=== PATIENT | female | born 1985 | race Caucasian/White ===

== ENCOUNTER 2017-01-16 09:16 | Emergency (ER) | payer OTHER ==
[~2017-01-16] VITALS: Ht 160 cm; Wt 61.9 kg
[~2017-01-16 09:16] MED LIST: APAP/HYDROCODON1 T13 PO; APAP500 MG PO; COLACE100 MG PO; FER300 PO; FOL1 PO; LAC PO; LEVAQUIN750 MG PO; LEVOTHYROXIN0.075 M2 PO; MULTI VITAMINS1 TA1 PO; NOR10T PO; PRE10 PO; ZYP5 PO
[2017-01-16 11:26] LABS: BASOPHIL % 0.3 % (0-2); RED CELL DISTRIBUTION WIDTH 13.9 % (11.5-14.5)
[2017-01-16 11:29] LABS: PLATELET COUNT 64 x10^3mcL (130-400)
[2017-01-16 11:37] LABS: CALCIUM 7.8 mg/dL (8.5-10.1); CARBON DIOXIDE 28.1 mmol/L (21-32); CREATININE SERUM 1.3 mg/dL (0.6-1.0); POTASSIUM SERUM 4.1 mmol/L (3.5-5.1)
[2017-01-16 11:41] LABS: microscopic required? YES; urine erythrocyte 3+ (NEGATIVE)
[2017-01-16 11:42] LABS: ALBUMIN 2.6 g/dL (3.4-5.0); BILIRUBIN TOTAL 0.3 mg/dL (0.20-1.00); TOTAL PROTEIN, SERUM 6.1 g/dL (6.4-8.2)
[2017-01-16 12:49] VITALS: BP 98/63
== END 2017-01-16 12:49 | disposition home or self-care (01) ==
LOC: ED 09:16
PROVIDERS: Emergency Medicine
DX: N39.0 Urinary tract infection, site not specified (principal); D64.9 Anemia, unspecified; E46 Unspecified protein-calorie malnutrition; E03.9 Hypothyroidism, unspecified; C85.90 Non-Hodgkin lymphoma, unspecified, unspecified site; N18.3 Chronic kidney disease, stage 3 (moderate); Z88.2 Allergy status to sulfonamides; Z88.1 Allergy status to other antibiotic agents
CPT/HCPCS: J0696; J7030

== ENCOUNTER 2017-01-20 21:38 | Inpatient (IN) | payer OTHER ==
[~2017-01-20] VITALS: Ht 162.6 cm; Wt 63.0 kg
[2017-01-20 22:37] LABS: UA SPECIFIC GRAVITY 1.015 (1.005-1.035); microscopic required? YES; urine erythrocyte 1+ (NEGATIVE)
[2017-01-20 22:40] LABS: CALCIUM 8.2 mg/dL (8.5-10.1); CARBON DIOXIDE 26.3 mmol/L (21-32); CREATININE SERUM 1.6 mg/dL (0.6-1.0); POTASSIUM SERUM 4.2 mmol/L (3.5-5.1)
[2017-01-20 22:43] LABS: BASOPHIL % 0.2 % (0-2); RED CELL DISTRIBUTION WIDTH 13.8 % (11.5-14.5)
[2017-01-20 22:44] LABS: PLATELET COUNT 105 x10^3mcL (130-400)
[2017-01-20 22:46] LABS: BILIRUBIN TOTAL 0.23 mg/dL (0.20-1.00); TOTAL PROTEIN, SERUM 6.2 g/dL (6.4-8.2)
[2017-01-20 22:47] LABS: ALBUMIN 2.7 g/dL (3.4-5.0)
[2017-01-20] MEDS ORDERED: SYNTHROID0.075 MG PO (23:13)
[2017-01-20] MEDS ORDERED: NORCO1 TA2 PO (23:14)
[2017-01-20] MEDS ORDERED: PYRIDIUM100 MG PO (23:14)
[2017-01-20] MEDS ORDERED: LEVAQUIN500 M1 PO (23:15)
[2017-01-21 00:19] LABS: AMPHETAMINE QUAL UR NONE DETECTED (NEG <=1000)
[2017-01-21 00:20] LABS: AMYLASE 66 U/L (25-115); CHOLESTEROL 188 mg/dL (<200); LIPASE 159 IU/L (73-393); MAGNESIUM 1.7 mg/dL (1.8-2.4); PHOSPHOROUS 4.5 mg/dL (2.5-4.9)
[2017-01-21 00:24] VITALS: BP 111/66; BP 125/79
[2017-01-21 00:26] LABS: CHOLESTEROL/HDL RATIO 5.5; HDL CHOLESTEROL 34 mg/dL (40-60); TRIGLYCERIDES 540 mg/dL (<150)
[2017-01-21 00:34] LABS: T3 TOTAL 1.18 ng/mL
[2017-01-21 00:37] LABS: FREE T4 1.23 ng/dL (0.76-1.46); FREE THYROXINE INDEX 2.8 ug/dL (1.4-4.5); T4(THYROXINE) 9.7 ug/dL (4.7-13.3)
[2017-01-21 05:09] VITALS: BP 123/81
[2017-01-21 06:13] LABS: CALCIUM 7.5 mg/dL (8.5-10.1); CARBON DIOXIDE 25.2 mmol/L (21-32); CREATININE SERUM 1.3 mg/dL (0.6-1.0); MAGNESIUM 1.7 mg/dL (1.8-2.4); PHOSPHOROUS 3.4 mg/dL (2.5-4.9); POTASSIUM SERUM 4.1 mmol/L (3.5-5.1)
[2017-01-21 06:20] LABS: RED CELL DISTRIBUTION WIDTH 13.7 % (11.5-14.5)
[2017-01-21 07:26] LABS: PLATELET COUNT 74 x10^3mcL (130-400)
[2017-01-21 09:37] LABS: MONOCYTE 4 % (0-7); SEGMENTED NEUTROPHILS 66 % (37-75); rbc morphology (normal/abnorm) NORMAL (NORMAL)
[2017-01-21 09:38] LABS: PLATELET MORPHOLOGY PLATELETS DECREASED
[2017-01-21 10:09] VITALS: BP 129/86
[2017-01-21 10:51] LABS: IRON 37 ug/dL (50-170)
[2017-01-21 10:54] LABS: TOTAL IRON BINDING CAPACITY 196 ug/dL (250-450)
[2017-01-21 11:31] LABS: RED BLOOD CELLS 2.74 M/mm3 (4.10-5.10)
[2017-01-21 12:54] VITALS: BP 123/76
[2017-01-21 16:14] LABS: BASOPHIL % 0.3 % (0-2); RED CELL DISTRIBUTION WIDTH 13.9 % (11.5-14.5)
[2017-01-21 16:18] LABS: PLATELET COUNT 72 x10^3mcL (130-400)
[2017-01-21 16:44] VITALS: BP 125/82
[2017-01-21 22:10] VITALS: BP 124/87
[2017-01-22 06:12] VITALS: BP 135/87
[2017-01-22 08:36] LABS: RED CELL DISTRIBUTION WIDTH 13.9 % (11.5-14.5)
[2017-01-22 09:35] LABS: CALCIUM 7.7 mg/dL (8.5-10.1); CARBON DIOXIDE 28.4 mmol/L (21-32); CHLORIDE SERUM 110 mmol/L (98-107); CREATININE SERUM 0.9 mg/dL (0.6-1.0); GFR1 > 60 mL/min; GLUCOSE SERUM 100 mg/dL (74-106); MAGNESIUM 1.6 mg/dL (1.8-2.4); POTASSIUM SERUM 4.6 mmol/L (3.5-5.1); SODIUM SERUM 142 mmol/L (136-145)
[2017-01-22 09:41] LABS: PLATELET COUNT 55 x10^3mcL (130-400)
[2017-01-22 09:42] VITALS: BP 133/87
[2017-01-22 11:31] LABS: SEGMENTED NEUTROPHILS 55 % (37-75)
[2017-01-22 11:32] LABS: BAND NEUTROPHIL 3 % (0-10); MONOCYTE 9 % (0-7); rbc morphology (normal/abnorm) NORMAL (NORMAL)
[2017-01-22 11:33] LABS: PLATELET MORPHOLOGY PLT CLUMPS SEEN
[2017-01-22 14:00] VITALS: BP 118/77
[2017-01-22 18:01] VITALS: BP 118/84
[2017-01-22 21:07] VITALS: BP 129/88
[2017-01-23 05:35] VITALS: BP 124/77
[2017-01-23 06:21] LABS: RED CELL DISTRIBUTION WIDTH 14.2 % (11.5-14.5)
[2017-01-23 06:42] LABS: CALCIUM 7.7 mg/dL (8.5-10.1); CARBON DIOXIDE 24.8 mmol/L (21-32); CHLORIDE SERUM 109 mmol/L (98-107); CREATININE SERUM 0.9 mg/dL (0.6-1.0); GFR1 > 60 mL/min; GLUCOSE SERUM 94 mg/dL (74-106); MAGNESIUM 2.1 mg/dL (1.8-2.4); PHOSPHOROUS 3.2 mg/dL (2.5-4.9); POTASSIUM SERUM 4.1 mmol/L (3.5-5.1); SODIUM SERUM 141 mmol/L (136-145)
[2017-01-23 07:13] LABS: PLATELET COUNT 63 x10^3mcL (130-400)
[2017-01-23 09:41] VITALS: BP 131/88
[2017-01-23 09:55] LABS: BAND NEUTROPHIL 0 % (0-10); BASOPHIL 0 % (0-2); MONOCYTE 10 % (0-7); SEGMENTED NEUTROPHILS 59 % (37-75)
[2017-01-23 09:56] LABS: ovalocyte/elliptocyte 1+; rbc morphology (normal/abnorm) ABNORMAL (NORMAL); tear drop cell (dacryocyte) 1+
[2017-01-23 13:16] VITALS: BP 128/88
[2017-01-23 17:13] VITALS: BP 141/98
[2017-01-23] MEDS ORDERED: ATA10 PO (17:32)
[2017-01-23] MEDS ORDERED: LAC PO (17:33)
[2017-01-23 17:55] VITALS: BP 141/98
[2017-01-23] MEDS ORDERED: ZOFRAN8 MG PO (19:12)
== END 2017-01-23 19:20 | disposition home health service (06) | DRG 720 ==
LOC: ED 21:38 → DU 23:13
PROVIDERS: Emergency Medicine; ADMIT Family Medicine
PROC: 02HV33Z Insertion of Infusion Device into Superior Vena Cava, Percutaneous Approach (ICD-10-PCS; principal; 2017-01-23)
DX: A41.51 Sepsis due to Escherichia coli [E. coli] (principal); N17.0 Acute kidney failure with tubular necrosis; E43 Unspecified severe protein-calorie malnutrition; N39.0 Urinary tract infection, site not specified; E03.9 Hypothyroidism, unspecified; E83.42 Hypomagnesemia; D64.9 Anemia, unspecified; E78.1 Pure hyperglyceridemia; R65.20 Severe sepsis without septic shock; Z16.12 Extended spectrum beta lactamase (ESBL) resistance; C85.90 Non-Hodgkin lymphoma, unspecified, unspecified site; Z92.21 Personal history of antineoplastic chemotherapy; Z88.1 Allergy status to other antibiotic agents; Z88.2 Allergy status to sulfonamides; Z88.8 Allergy status to other drugs, medicaments and biological substances; Z83.3 Family history of diabetes mellitus; Z82.49 Family history of ischemic heart disease and other diseases of the circulatory system; Z72.89 Other problems related to lifestyle; Z68.23 Body mass index [BMI] 23.0-23.9, adult
CPT/HCPCS: 76770; 80307; 83880; 84439; C1751; J1200; J1335; J1580; J1642; J2060; J2185; J2270; J2405; J2543; J3475; J3490; J7030; Q0092; Q0163

== ENCOUNTER 2017-02-09 17:21 | Emergency (ER) | payer OTHER ==
[~2017-02-09] VITALS: Ht 162.6 cm; Wt 62.1 kg
[~2017-02-09 17:21] MED LIST changes: +ATA10 PO; +LEVAQUIN500 M1 PO; +NORCO1 TA2 PO; +PYRIDIUM100 MG PO; +SYNTHROID0.075 MG PO; +ZOFRAN8 MG PO
[2017-02-09 21:21] VITALS: BP 118/74
== END 2017-02-09 21:21 | disposition home or self-care (01) ==
LOC: ED 17:21
DX: Z45.2 Encounter for adjustment and management of vascular access device (principal); Z88.2 Allergy status to sulfonamides; Z88.1 Allergy status to other antibiotic agents

== ENCOUNTER 2017-02-19 19:34 | Emergency (ER) | payer OTHER ==
[2017-02-19 23:10] LABS: BASOPHIL % 1.4 % (0-2)
[2017-02-19 23:14] LABS: PLATELET COUNT 51 x10^3mcL (130-400); RED CELL DISTRIBUTION WIDTH 14.6 % (11.5-14.5)
[2017-02-19 23:16] LABS: CALCIUM 7.8 mg/dL (8.5-10.1); CARBON DIOXIDE 29.5 mmol/L (21-32); CREATININE SERUM 1.3 mg/dL (0.6-1.0); POTASSIUM SERUM 3.9 mmol/L (3.5-5.1)
[2017-02-19 23:20] LABS: BILIRUBIN TOTAL 0.3 mg/dL (0.20-1.00)
[2017-02-19 23:21] LABS: ALBUMIN 2.6 g/dL (3.4-5.0); TOTAL PROTEIN, SERUM 5.7 g/dL (6.4-8.2)
[2017-02-19 23:23] LABS: UA SPECIFIC GRAVITY >=1.030 (1.005-1.035); microscopic required? YES; urine erythrocyte 1+ (NEGATIVE)
[2017-02-20 01:54] VITALS: BP 122/78
== END 2017-02-20 01:54 | disposition home or self-care (01) ==
LOC: ED 19:34
PROVIDERS: Emergency Medicine
DX: H10.9 Unspecified conjunctivitis (principal); J40 Bronchitis, not specified as acute or chronic; R11.10 Vomiting, unspecified; D69.6 Thrombocytopenia, unspecified; Z79.899 Other long term (current) drug therapy; Z85.71 Personal history of Hodgkin lymphoma; Z88.1 Allergy status to other antibiotic agents; Z88.2 Allergy status to sulfonamides
CPT/HCPCS: J2405; J7030

== ENCOUNTER 2017-04-29 20:05 | Inpatient (IN) | payer OTHER ==
[~2017-04-29] VITALS: Ht 162.6 cm; Wt 57.2 kg
--- NOTE | 2017-04-29 20:28 | NUR ---
DID NOT MEDICATE FOR FEVER DUE TO VOMITING
--- NOTE | 2017-04-29 23:07 | NUR ---
PT BRB BY FAMILY, COMPLAINING OF R FLANK PAIN 05/04, X1DAY, PCP DX OF UTI 04/24/17, PT VOMIMTING MULTIPLE TIMES X 1DAY, PT DENIES ANY URINARY SYMPTOMS, AOX4, MONITOPRS HOOKED UP CALL LIGHT WITHIN REACH, WILL CONTINUE TO MONITOR
--- NOTE | 2017-04-29 23:21 | NUR ---
REPORT GIVEN TO RN NADIR PACKER, ALL QUESTIONS ADDRESSED, WILL CONTINUE TO MONITOR
[2017-04-29 23:32] LABS: CALCIUM 7.7 mg/dL (8.5-10.1); CARBON DIOXIDE 23.1 mmol/L (21-32); CREATININE SERUM 1.7 mg/dL (0.6-1.0); POTASSIUM SERUM 4.4 mmol/L (3.5-5.1)
[2017-04-29 23:35] LABS: BASOPHIL % 0.6 % (0-2)
[2017-04-29 23:36] LABS: BILIRUBIN TOTAL 0.3 mg/dL (0.20-1.00); TOTAL PROTEIN, SERUM 6.3 g/dL (6.4-8.2)
[2017-04-29 23:38] LABS: ALBUMIN 2.6 g/dL (3.4-5.0)
[2017-04-29 23:41] LABS: RED CELL DISTRIBUTION WIDTH 16.9 % (11.5-14.5)
[2017-04-29 23:43] LABS: PLATELET COUNT 18 x10^3mcL (130-400)
--- NOTE | 2017-04-29 23:45 | NUR ---
DR DIAZ AND PRIMARY RN CORINA INFORMED OF CRITICAL RESULT: PLATELETTS = 18.
[2017-04-29 23:54] LABS: CK-MB 0.7 ng/mL (0-3.6)
[2017-04-29 23:59] LABS: microscopic required? YES
[2017-04-30] VITALS (10 sets, daily range): BP systolic 85–114; BP diastolic 55–76
[2017-04-30] LABS: urine erythrocyte 2+ (NEGATIVE)
[2017-04-30 00:46] LABS: MAGNESIUM 1.8 mg/dL (1.8-2.4); PHOSPHOROUS 3.5 mg/dL (2.5-4.9)
[2017-04-30 00:48] LABS: CHOLESTEROL/HDL RATIO 3.3
[2017-04-30 00:53] LABS: FREE T4 1.12 ng/dL (0.76-1.46); FREE THYROXINE INDEX 1.7 ug/dL (1.4-4.5); T4(THYROXINE) 7.3 ug/dL (4.7-13.3)
[2017-04-30 00:56] LABS: T3 TOTAL 1.03 ng/mL
--- NOTE | 2017-04-30 01:32 | NUR ---
RECEIVED PATIENT FROM ED VIA GUERNEY, PATIENT A/O X 4, MOTHER AT BEDSIDE, C/O PAIN TO BACK WILL MEDICATE ORDERED, TELE # 15 ST, NO IV ACCESS AT THIS TIME, ORIENTED PATIENT TO ROOM AND SURROUNDINGS, BED IN LOW POSITION, BED RAILS UP X 2, CALL LIGHT WITHIN REACH, WILL ENDORSE CARE TO PRIMARRY NURSE MISTY CHAU
--- NOTE | 2017-04-30 01:40 | NUR ---
RECIEVED REPORT FROM BRIAN CHAU. BREATHING EVEN AND UNLABORED, ON RA. ON TELE #15, SINUS T[place]Y, HR: 110. C/O 9/10 RIGHT FLANK PAIN, MEDICATED WITH PRN ZOFRAN AND MORPHINE. IV TO RIGHT HAND IS PATENT AND INFUSING NS @ 100 ML/HR. MOTHER AT BEDSIDE. ORIENTED TO ROOM, BED IN LOW POSITION, CALL LIGHT IN REACH. WILL CONTINUE TO MONITOR.
--- NOTE | 2017-04-30 03:00 | NUR ---
PTT: 52.2, DR. DARRIUS FOREMAN.
--- NOTE | 2017-04-30 06:15 | NUR ---
RESTING IN BED WITH EYES CLOSED. AWAKENS EASILY TO VERBAL STIMULI. BREATHING EVEN AND UNLABORED, ON RA. NO ACUTE DISTRESS NOTED. IV PATENT AND INFUSING. TEMPERATURE AT 0600 WAS 101, AFTER 2 TABS TYLENOL. PRIOR TO TYLENOL WAS 103. WILL ENDORSE CARE TO ONCOMING RN.
--- NOTE | 2017-04-30 07:20 | NUR ---
BEDSIDE REPORT RCD FROM KANDI SCHMITZ. PATIENT ASLEEP BUT WAKES WHEN NURSES COME IN ROOM. NS 100ML/HR TO RIGHT HAND W/O COMPLICATIONS. BED LOW, CALL LIGHT WITHIN REACH. LAST TEMP 101.3 6 AM AFTER TYLENOL AT 4 AM, WILL MONITOR, COOLING MEASURES IN PLACE, A/C ON, NO BLANKETS. RR 24, NSR 87. PATIENT REPORTS RIGHT FLANK PAIN TOLERABLE AT THIS TIME 2/10 WHEN LYING STILL. EDUCATED PATIENT OF NEED FOR STOOL SAMPLE FOR H/H 7.04/17, HAT IN TOILET, PATIENT VERBALIZES UNDERSTANDING. 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 TELE 15, NSR 87, NO COMPLAINT OF CHEST PAIN. PALPABLE PERIPHERAL PULSES, NO EDEMA. LAST BM YESTERDAY, NORMAL. UA POSITIVE, ON ZOSYN. LUNGS CTA KEELY, RR 24, NO COMPLAINT OF SHORTNESS OF BREATH. O2 SAT 98% ON ROOM AIR. SKIN INTACT.
--- NOTE | 2017-04-30 09:26 | NUR ---
PATIENT COMPLAINING OF INCREASING RIGHT FLANK PAIN. MORPHINE AND ZOFRAN GIVEN PER MAR FOR PAIN WITH NAUSEA. TEMP 99.8, IMPROVED FROM 101.7 BEFORE TORADOL AN HOUR AGO.
--- NOTE | 2017-04-30 10:00 | NUR ---
PATIENT REPORTING FLANK PAIN IMPROVED AFTER MORPHINE, 3/10 AT THIS TIME. WILL MONITOR.
--- NOTE | 2017-04-30 11:01 | NUR ---
PATIENT ASLEEP, REGULAR RESPS. WILL MONITOR.
--- NOTE | 2017-04-30 12:30 | NUR ---
PATIENT SITTING UP EATING LUNCH. NO NEEDS AT THIS TIME.
--- NOTE | 2017-04-30 14:10 | NUR ---
PLATELET TRANSFUSION BEGUN. PRE TRANSFUSION VITALS: TEMP 98.8, HR 76, BP 93/64, RR 20, 99% RA.
--- NOTE | 2017-04-30 14:25 | NUR ---
PATIENT TOLERATING PLATELET TRANSFUSION WITHOUT SYMPTOMS. BP 85/55 MAP 63, TEMP 98.0, RR 20, 98% ON ROOM AIR
--- NOTE | 2017-04-30 15:15 | NUR ---
PATIENT ASLEEP, REGULAR RESPS, NO DISTRESS NOTED. PLATELETS INFUSING AT 100 ML/HR. WILL MONITOR.
--- NOTE | 2017-04-30 16:55 | NUR ---
PLATELET TRANSFUSION COMPLETE. TEMP 98.9, HR 83, 95/61, RR 20, 99% RA. NO ADVERSE REACTION NOTED. PATIENT WITH NO NEEDS AT THIS TIME. WILL MONITOR.
--- NOTE | 2017-04-30 17:56 | NUR ---
PATIENT WITH NO NEEDS AT THIS TIME. WILL MONITOR.
--- NOTE | 2017-04-30 18:17 | NUR ---
MORPHINE GIVEN PER MAR FOR PATIENT COMPLAINT OF 7/10 RIGHT FLANK PAIN.
--- NOTE | 2017-04-30 19:10 | NUR ---
A&O X 4. ON TELE #15, NSR, HR: 92. LUNG SOUNDS CLEAR AND UNLABORED, ON RA. RADIAL AND PEDAL PULSES PALPABLE, NO EDEMA. BOWEL SOUNDS ACTIVE X 4 QUADRANTS. DENIES PAIN AT THIS TIME. SKIN INTACT. IV TO RIGHT HAND PATENT AND INFUSING NS @ 100 ML/HR, NO REDNESS OR SWELLING. BED IN LOW POSITION, CALL LIGHT IN REACH. INSTRUCTED TO CALL FOR ASSISTANCE.
--- NOTE | 2017-04-30 19:24 | NUR ---
BEDSIDE REPORT GIVEN TO KANDI SCHMITZ. PATIENT ASLEEP, REGULAR RESPS. NS 100 ML/HR TO RIGHT HAND W/O COMPLICATIONS. BED LOW, CALL LIGHT WITHIN REACH. CARE ENDORSED.
[2017-04-30 21:56] LABS: PLATELET COUNT 20 x10^3mcL (130-400); RED CELL DISTRIBUTION WIDTH 16.8 % (11.5-14.5)
--- NOTE | 2017-04-30 22:00 | NUR ---
LABS POST PLATELET INFUSION: WBC: 2.6, PLATELETS: 20. DR ROBERTSON AWARE.
[2017-04-30 22:02] LABS: BAND NEUTROPHIL 0 % (0-10); BASOPHIL 0 % (0-2); MONOCYTE 4 % (0-7); SEGMENTED NEUTROPHILS 76 % (37-75); rbc morphology (normal/abnorm) ABNORMAL (NORMAL)
--- NOTE | 2017-05-01 01:13 | NUR ---
RESTING IN BED WITH EYES CLOSED, AWAKENS EASILY TO VERBAL STIMULI. BREATHING EVEN AND UNLABORED, ON RA. NO ACUTE DISTRESS NOTED. IV PATENT AND INFUSING. BED IN LOW POSITION, CALL LIGHT IN REACH. WILL CONTINUE TO MONITOR.
[2017-05-01 05:48] VITALS: BP 90/57
[2017-05-01 05:58] LABS: CALCIUM 6.9 mg/dL (8.5-10.1); CARBON DIOXIDE 21.3 mmol/L (21-32); CREATININE SERUM 2.7 mg/dL (0.6-1.0); MAGNESIUM 1.9 mg/dL (1.8-2.4); PHOSPHOROUS 4.6 mg/dL (2.5-4.9); POTASSIUM SERUM 4.1 mmol/L (3.5-5.1)
[2017-05-01 06:18] LABS: RED CELL DISTRIBUTION WIDTH 17.1 % (11.5-14.5)
[2017-05-01 06:22] LABS: PLATELET COUNT 11 x10^3mcL (130-400)
--- NOTE | 2017-05-01 06:30 | NUR ---
WBC: 2.1, H/H: 6.1/19, PLATELET: 11. BP: 90/[address] ROBERTSON AWARE. RESTING IN BED WITH EYES CLOSED, AWAKENS EASILY TO VERBAL STIMULI. BREATHING EVEN AND UNLABORED, ON RA. NO ACUTE DISTRESS NOTED. IV PATENT AND INFUSING. BED IN LOW POSITION, CALL LIGHT IN REACH. WILL ENDORSE TO ONCOMING RN.
[2017-05-01 06:44] LABS: BAND NEUTROPHIL 1 % (0-10); BASOPHIL 0 % (0-2); MONOCYTE 5 % (0-7); SEGMENTED NEUTROPHILS 72 % (37-75)
[2017-05-01 06:46] LABS: rbc morphology (normal/abnorm) ABNORMAL (NORMAL)
[2017-05-01 06:48] LABS: ovalocyte/elliptocyte 1+
--- NOTE | 2017-05-01 07:20 | NUR ---
RECEIVED PT LAYING IN BED ASLEEP. NO APPARENT SIGNS OF ACUTE DISTRESS NOTED AT THIS TIME. IV SITE APPEARS TO BE INFUSING WELL AT 100ML/HR TO THE RH. RESPIRATIONS EVEN AND UNLABORED. BED IN LOWEST POSITION. CALL LIGHT WITHIN REACH. INFORMATION BOARD UPDATED. WILL CONTINUE TO MONITOR
--- NOTE | 2017-05-01 08:35 | NUR ---
AM ROUNDS DONE. PER DR. LEACH, PT WILL HAVE A HEMOTOLOGY CONSULT TO LOOK INTO THE SPECIFICS OF THE INCREASED DROP IN PLATLETT COUNT, AND A ONCOLOGY CONSULT TO REVIEW THE PTS NONHODGKINS LYMPHOMA STATUS. PT AGREES TO PLAN OF CARE
[2017-05-01 10:42] VITALS: BP 99/72
--- NOTE | 2017-05-01 12:17 | NUR ---
PT LAYING IN BED WATCHING TV. WAS GIVEN NORCO PO PRN FOR PAIN 04/04. IV INFUSING WELL. CALL LIGHT WITHIN REACH. WILL CONTINUE TO MONITOR
--- NOTE | 2017-05-01 13:34 | NUR ---
PT STATES THAT SHE IS STILL FEELING ITCHY AND VERY ANXIOUS. SPOKE TO DR. CRONIN AND SHE IS AWARE. WILL ASSESS AND ORDER PRN ACCORDINGLY. WILL CONTINUE TO MONITOR
[2017-05-01 13:56] VITALS: BP 99/72
[2017-05-01 15:06] VITALS: Ht 162.6 cm; Wt 57.2 kg
--- NOTE | 2017-05-01 15:30 | NUR ---
PT WAS GIVEN BENADRYL PO FOR ITCHING. PT IS ALSO AWARE THAT SHE WILL BE TRANSFERRING TO [place] SOON A BED IS AVAILABLE. CALL LIGHT WITHIN REACH. WILL CONTINUE TO MONITOR
[2017-05-01 15:48] VITALS: BP 99/72
--- NOTE | 2017-05-01 15:58 | NUR ---
PT SIGNED TRANSFER CONSENT FORM. MOTHER AT BEDSIDE. INFORMED PT THAT SHE WOULD BE LEAVING WITHIN 30 MINUTES TO [facility]. AGREES TO TRANSFER
[2017-05-01] MEDS ORDERED: LAC PO (16:00)
[2017-05-01] MEDS ORDERED: ZOS3PM IV (16:00)
--- NOTE | 2017-05-01 16:05 | NUR ---
CALLED [facility] AND GAVE HANDOFF REPORT TO KANDI FRANZ. DR. KIM WILL BE SIGNING OFF ON TRANSFER FORM. [facility] IS SOURCE OF TRANSPORT. PT WILL BE PUT IN ROOM 423A. DR. TUBBS IS THE RECEIVING PHYSCIAN.
--- NOTE | 2017-05-01 16:20 | NUR ---
REPORT GIVEN TO [facility] ON PT HISTORY AND DX. PT SALINE LOCKED. TRANSFER GOWN GIVEN. TELEBOX COLLECTED AND RETURNED TO MONITOR STATION.
== END 2017-05-01 16:27 | DRG 720 ==
LOC: ED 20:05 → DU 22:46
PROVIDERS: Emergency Medicine; ADMIT Family Medicine
PROC: 30233R1 Transfusion of Nonautologous Platelets into Peripheral Vein, Percutaneous Approach (ICD-10-PCS; principal; 2017-04-30)
DX: A41.9 Sepsis, unspecified organism (principal); N17.0 Acute kidney failure with tubular necrosis; E43 Unspecified severe protein-calorie malnutrition; C81.00 Nodular lymphocyte predominant Hodgkin lymphoma, unspecified site; D61.810 Antineoplastic chemotherapy induced pancytopenia; N10 Acute pyelonephritis; R65.20 Severe sepsis without septic shock; M62.50 Muscle wasting and atrophy, not elsewhere classified, unspecified site; R74.0 Nonspecific elevation of levels of transaminase and lactic acid dehydrogenase [LDH]; D63.0 Anemia in neoplastic disease; Z88.2 Allergy status to sulfonamides; Z88.8 Allergy status to other drugs, medicaments and biological substances; Z83.3 Family history of diabetes mellitus; Z82.49 Family history of ischemic heart disease and other diseases of the circulatory system; E78.2 Mixed hyperlipidemia; N39.0 Urinary tract infection, site not specified
CPT/HCPCS: 83880; 84439; J1200; J1580; J1885; J2270; J2405; J2543; J3490; J7030; J7040; P9035; Q0163